=== PATIENT | male | born 1970 | race Two or more races ===

== ENCOUNTER 2024-05-17 16:55 | Emergency (ER) | payer OTHER ==
[~2024-05-17] VITALS: Ht 188 cm; Wt 117.9 kg
[2024-05-17] MEDS ORDERED: HYDROCHLOROTHIA25 MG PO (17:56)
[2024-05-17] MEDS ORDERED: CLONIDINE HCL0.2 MG PO (17:56)
[2024-05-17] MEDS ORDERED: ZESTRIL20 MG (17:56)
[2024-05-17] MEDS ORDERED: CIPROFLOXACIN IN 5 % DEXTROSE 400 MG/200 ML PIGGYBAG IV STA (18:14)
[2024-05-17] MEDS ORDERED: METRONIDAZOLE/SODIUM CHLORIDE 500 MG/100 ML PIGGYBACK IV STA (18:14)
[2024-05-17] MEDS ORDERED: SODIUM CHLORIDE 0.45 % 1,000 ML IV STA (18:15)
[2024-05-17] MEDS ORDERED: CIPROFLOXACIN IN 5 % DEXTROSE 400 MG/200 ML PIGGYBAG IV ONE (18:24)
[2024-05-17] MEDS ORDERED: METRONIDAZOLE/SODIUM CHLORIDE 500 MG/100 ML PIGGYBACK IV ONE (18:25)
[2024-05-17 18:44] LABS: HEMATOCRIT 42.2 % (39.0-48.0); HEMOGLOBIN 14.8 g/dL (13-16.00); MEAN CELL VOLUME 93.6 fL (80.0-100.00); MEAN CORPUSCULAR HEMOGLOBIN 32.7 pg (27.00-32.0); MEAN CORPUSCULAR HGB CONC 34.9 g/dl (32.0-36.0); PLATELET COUNT 207 K/uL (150-450); RED BLOOD COUNT 4.51 M/uL (4.00-6.00)
[2024-05-17 19:03] LABS: CALCIUM 9.2 mg/dL (8.5-10.1); CREATININE SERUM 1.15 mg/dL (0.70-1.30); GFR 66.52; POTASSIUM 4.07 mEq/L (3.5-5.1)
== END 2024-05-18 00:25 | disposition home or self-care (01) ==
LOC: ER 16:57
PROVIDERS: General Practice
DX: K61.0 Anal abscess (principal)
CPT/HCPCS: 36415; 72193; 96365; 99284; J0744; J3490; Q9965